=== PATIENT | male | born 1975 | race African-American/Black ===

== ENCOUNTER 2025-01-22 21:56 | Emergency (ER) | payer BC ==
[~2025-01-22] VITALS: Ht 170.2 cm; Wt 124.0 kg
[2025-01-22 22:12] VITALS: O2SAT 98
[2025-01-22] MEDS: LIDOCAINE HCL/EPINEPHRINE 1%-EPI 1:100,000 10ML VIAL INFIL ONE (23:30)
[2025-01-22] MEDS ORDERED: PHENYLEPHRINE 100 MCG/ML IV SCH ×2 (23:45)
[2025-01-23] MEDS: DIPHENHYDRAMINE 50MG/ML VIAL IM PRN (01:09)
[2025-01-23] MEDS: PSEUDOEPHEDRINE HCL 30MG TABLET PO ONE (01:09)
[2025-01-23] MEDS: TERBUTALINE SULFATE 1MG/ML VIAL SUBCUT ONE ×2 (01:15→03:22)
[2025-01-23] MEDS ORDERED: LORAZEPAM 2MG/ML INJ IM ONE (02:45)
[2025-01-23] MEDS ORDERED: PHENYLEPHRINE 100 MCG/ML IV SCH (03:00)
[2025-01-23] MEDS: HYDROCODONE/ACETAMINOPHEN 10/325MG TABLET PO ONE (03:23)
[2025-01-23] MEDS: SODIUM CHLORIDE 0.9% 1,000 ML IV ONE (03:24)
[2025-01-23] MEDS: LORAZEPAM 2MG/ML UD SYRINGE IM NR (03:33)
[2025-01-23] MEDS ORDERED: LIDOCAINE HCL/EPINEPHRINE 1%-EPI 1:100,000 10ML VIAL INFIL ONE (03:45)
[2025-01-23 05:20] LABS: BASOPHILS % 0.8 % (0.0-2.0); EOSINOPHILS % 1.6 % (0.0-5.0); HEMATOCRIT. 36.9 % (42.0-52.0); HEMOGLOBIN. 12.2 g/dL (14.0-18.0); MEAN CORPUSCULAR HEMOGLOBIN 29.6 pg (28.0-32.0); MEAN CORPUSCULAR VOLUME 89.7 fL (80.0-94.0); MEAN PLATELET VOLUME 9.2 fl (7.4-10.4); NEUTROPHILS % 67.6 % (40.0-76.0); PLATELET 213 x1000/uL (130-400); RED BLOOD CELL COUNT 4.11 mill/uL (4.7-6.1); RED CELL DISTRIBUTION WIDTH 15.9 % (11.6-14.6); WHITE BLOOD COUNT 9.5 x1000/uL (4.5-11.0)
[2025-01-23 05:32] LABS: CHLORIDE 111 mEq/L (98-107); POTASSIUM 3.4 mEq/L (3.5-5.1); SODIUM 141 mEq/L (136-145)
[2025-01-23 05:33] LABS: CALCIUM 8.1 mg/dL (8.7-10.4); CARBON DIOXIDE 25 mEq/L (21-32)
[2025-01-23 05:38] LABS: CREATININE 0.9 mg/dL (0.6-1.3); GLUCOSE 108 mg/dL (70-105); UREA NITROGEN BLOOD 10 mg/dL (9-23)
[2025-01-23 06:13] LABS: INR 1.1; PROTHROMBIN TIME 11.4 sec (9.6-11.0)
[2025-01-23 15:48] VITALS: BP 119/61; PULSE 75; RESP 22; TEMP 37.2; O2SAT 98
== END 2025-01-23 16:18 | disposition short-term general hospital (02) ==
LOC: ER 21:56
DX: N48.30 Priapism, unspecified (principal)
CPT/HCPCS: 99285; 96360; 80048; 85025; 85610; 86850; 86900; 86901; 36415; 96372; J2371 ×2; J1200; J2060; J3105; J7030